=== PATIENT | female | born 2000 | race Two or more races ===

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

== ENCOUNTER 2023-12-26 12:43 | Emergency (ER) | payer MEDICAID ==
[~2023-12-26] VITALS: Ht 172.7 cm; Wt 62.7 kg
[2023-12-26 13:48] VITALS: BP 112/77; PULSE 80
[2023-12-26 13:52] LABS: Basophils # (auto) 0 10 ^3/uL (0-0.2); Basophils % (auto) 0.4 % (0.0-2.0); Eosinophils # (auto) 0 10 ^3/uL (0-0.8); Eosinophils % (auto) 0.3 % (0.0-7.0); Hematocrit 41.8 % (36.0-46.0); Hemoglobin 13.9 g/dL (12.2-16.2); Lymphocytes # (auto) 1.9 10 ^3/uL (0.4-5.4); Lymphocytes % (auto) 17.4 % (10.0-50.0); Mean Corpuscular Hemoglobin 28.9 pg (28.0-32.0); Mean Corpuscular Hgb Conc. 33.3 g/dL (32.0-36.0); Mean Corpuscular Volume 86.8 fL (80.0-100.0); Monocytes # (auto) 0.6 10 ^3/uL (0-1.3); Monocytes % (auto) 5.9 % (0.0-12.0); Neutrophils # (auto) 8.2 10 ^3/uL (1.6-8.6); Red Blood Cells 4.82 10^6/uL (4.0-5.20); Red Cell Distribution Width 14.1 % (11.8-14.3); White Blood Cell 10.8 10^3/uL (4.4-10.8)
[2023-12-26 14:01] LABS: Chloride 105 mmol/L (98-107); Sodium 137 mmol/L (136-145)
[2023-12-26 14:02] LABS: Anion Gap 7 (5-15); Carbon Dioxide 25 mmol/L (20-30)
[2023-12-26 14:03] LABS: Calcium 9.4 mg/dL (8.5-10.1)
[2023-12-26 14:07] LABS: BUN/Creatinine Ratio 13.6 (10.0-20.0); Blood Urea Nitrogen 8 mg/dL (9-23); Glucose 77 mg/dL (74-106)
[2023-12-26 16:41] LABS: Urine Bacteria None Seen /hpf (None Seen)
[2023-12-26 16:52] LABS: Urine Blood 2+ /uL (Negative); Urine Clarity Turbid (Clear); Urine Color Yellow (Yellow); Urine Hyaline Cast FEW /lpf (0 - 2); Urine Mucus FEW (None Seen); Urine Protein, UAD Negative (Negative); Urine Specific Gravity 1.026 (1.001-1.035); Urine Urobilinogen Normal (Negative); Urine WBC 9 /hpf (0 - 5); Urine pH 5.5 (5.0-9.0)
[2023-12-26] MEDS ORDERED: CEPH250C PO (17:54)
[2023-12-26 23:31] VITALS: RESP 20; O2SAT 96
== END 2023-12-26 20:07 | disposition home or self-care (01) ==
LOC: ER 12:43
DX: O23.41 Unspecified infection of urinary tract in pregnancy, first trimester (principal); R10.2 Pelvic and perineal pain; N39.0 Urinary tract infection, site not specified; Z3A.01 Less than 8 weeks gestation of pregnancy
CPT/HCPCS: 36415; 76801; 76817; 80048; 81001; 84702; 85025